=== PATIENT | male | born 2000 | race Caucasian/White ===

== ENCOUNTER 2025-01-14 14:33 | Emergency (ER) | payer OTHER ==
[~2025-01-14] VITALS: Ht 172.7 cm; Wt 75.0 kg
[2025-01-14 14:53] VITALS: TEMP 98.2
[2025-01-14] MEDS ORDERED: IBUPROFEN 400 MG TABLET ONE (15:20)
[2025-01-14] MEDS: IBUPROFEN 400 MG TABLET PO ONE (15:56)
[2025-01-14] MEDS: ACETAMINOPHEN 500 MG TABLET PO ONE (15:56)
[2025-01-14] MEDS ORDERED: AMOX-457 PO (18:42)
[2025-01-14 18:50] VITALS: BP 125/76; PULSE 80; RESP 18; O2SAT 98
== END 2025-01-14 18:52 | disposition home or self-care (01) ==
LOC: EMS 14:37
DX: S02.631A Fracture of coronoid process of right mandible, initial encounter for closed fracture (principal); Z91.041 Radiographic dye allergy status; Y04.0XXA Assault by unarmed brawl or fight, initial encounter; Y93.89 Activity, other specified; Y92.89 Other specified places as the place of occurrence of the external cause; Y99.8 Other external cause status
CPT/HCPCS: 70486; 99284; Z7502; Z7610